=== PATIENT | female | born 1975 | race Caucasian/White ===

== ENCOUNTER 2016-12-09 03:02 | Emergency (ER) | payer BC ==
--- NOTE | 2016-12-09 06:46 | ED ORDER SUMMARY ---
..... Patient: CRISTI DUFFY OrderSheet [facility] VisitID: [id number] [place] [address] 41y, F Registration Date/Time: 12/09/2016 ORDER SHEET Weight: 136.0 kg (stated) Allergies: Sulfa Antibiotics GENERAL ORDERS: CBC w Diff Urgent (03:17 12/09/2016 Kai Carlos) (3:22 JDeElena R.N.) CMP Urgent (03:12/09/2016 Kai Carlos) (3:22 JDeElena R.N.) UA-Culture if indicated Urgent (03:12/09/2016 Kai Carlos) (3:22 JDeElena R.N.) Urine Urgent (03:12/09/2016 Kai Carlos) (3:22 JKadea R.N.) Type & Rh Urgent (03:49 12/09/2016 Kai Carlos) (3:56 HSoule) Serum Quantitative Urgent (03:49 12/09/2016 Kai Carlos) (3:56 HSoule) US OB 1st Trimester w Transvag (?) Urgent (03:49 12/09/2016 Kai Carlos) (Ack 4:00 JDeElena R.N.) (6:02 JDeElena R.N.) GC/Chlamydia (Cervix) (Cervix ) Urgent (04:59 12/09/2016 Cornelio R.NAngelia verbal order read back to Kai Carlos) (5:02 JDeElena R.N.) Wet Prep (Cervix) (Cervix) Urgent (05:00 12/09/2016 Cornelio R.NAngelia verbal order read back to Kai Carlos) (5:02 JDeElena R.N.) MEDICATION ORDERS: IV FLUIDS: IV Saline Lock (03:17 12/09/2016 Kai Carlos) (3:22 JDeElena R.N.) Morphine IV 4 mg (HIGH ALERT MEDICATION, NOW) (06:30 12/09/2016 Kai Carlos) (Ack 6:33 HSoule) (6:40 HSoule) Zofran IV 4 mg (NOW) (06:30 12/09/2016 Kai Carlos) (Ack 6:33 HSoule) (6:40 HSoule) ORDER SHEET NOTES: [Electronically signed by He Payne Dr. (06:51 12/09/2016)] [Electronically signed by Viviana Brower R.N. (07:55 12/11/2016)] [Electronically locked/signed by Viviana Brower R.N. (07:55 12/11/2016)]
--- NOTE | 2016-12-09 06:46 | ED NURSING NOTES ---
Clinical Report - Nurses [place] [address] 12/09/2016 3:04 Patient: CRISTI DUFFY TRIAGE Triage time 03:16. Acuity: LEVEL 3. Chief Complaint: ABDOMINAL PAIN and CRAMPS and VAGINAL BLEEDING. 03:20 12/09/16. Alert. SEPSIS SCREEN: Sepsis Screen: negative. Negative (no infection suspected/documented). --03:20 Bart Barnes R.N. 03:16 12/09/16. BP: 146/84 (regular adult cuff) taken on the right arm, via an automated monitor, while lying. HR: 106 (tachycardic). RR: 18 (regular, unlabored and normal). O2 saturation: 99% on room air. Temp: 97.8 F (oral). Pain level now: 810. --03:20 Bart Barnes R.N. Chief Complaint: (Currently being treated for UTI.). --03:21 Bart Barnes R.N. Weight: 136 kg stated. Height/Length: 65 inches Per Patient. BMI: 50. --03:17 Bart Barnes R.N. Medications Vitamins Oral. --03:17 Bart Barnes R.N. Cephalexin Oral. --03:18 Bart Barnes R.N. Medication/allergy information source: the patient. --03:20 Bart Barnes R.N. Allergies Sulfa Antibiotics. --03:18 Bart Barnes R.N. History Arrived by private vehicle. Historian: patient. Accompanied by spouse. Primary physician (Dr. Momin ([facility] This started just prior to arrival. She has had a subjective fever and severe, cramping abdominal pain. The pain is described as located in the suprapubic region and lower abdomen. She has had vaginal bleeding (States she feels like the tissue came out in the toilet.). She has had care. She is . No chills, sweating episodes, nausea, vomiting or difficulty with urination. Denies muscle aches. Treatment MASTER BARBER: None. PAST MEDICAL HX: Confirmed . In 1st trimester. Has had care by feed research technician. She has had care by an feed research technician. OB history: G 1; P 0; Ab 0. SOCIAL HX: Never smoker. No alcohol use or drug use. She has not traveled outside the [place] The patient was not exposed to MRSA. No infectious disease exposure. ABUSE ASSESSMENT: Abuse assessment: The patient was asked "Do you feel safe in your home?" and "Has anyone hurt you or threatened to hurt you?". No report of abuse. SELF HARM ASSESSMENT: A self harm assessment was performed. The patient answered "no" to the question "Do you have thoughts of harming or killing yourself?" and "Have you recently had thoughts about harming or killing others?". FALL RISK ASSESSMENT: Fall risk assessment completed. No fall risk identified. NUTRITIONAL RISK ASSESSMENT: The nutritional risk assessment revealed no deficiencies. FUNCTIONAL ASSESSMENT: Functional assessment: no impairments noted. LEARNING NEEDS ASSESSMENT: The learning needs assessment revealed no barriers. SKIN INTEGRITY ASSESSMENT: Skin integrity risk assessment completed. No skin integrity risk identified. --03:20 Bart Barnes R.N. ADDITIONAL SURGERIES: Appendectomy. Eye Surgery. Lap Band. Tonsillectomy. --03:18 Bart Barnes R.N. Assessment GENERAL / NEURO / PSYCH: Alert. Oriented X 4. Appears in distress. Brian Coma Scale: 15- eyes open spontaneously (4); best verbal response- oriented x 4 (5); best motor response- obeys commands (6). RESPIRATORY: Respirations not labored. SKIN: Skin is warm and dry. --03:20 Bart Barnes R.N. Interventions ID band on patient. To treatment room. --03:20 Bart Barnes R.N. NURSING PROGRESS NOTES 03:21 12/09/16. The initial plan of care for this patient has been created This plan of care was discussed with the patient. Patient gowned. Warming measures: blanket applied. Reassurance given to the patient. Two patient identifiers checked. Call light placed in reach. Side rails up x 2. Bed placed in lowest position. Brakes of bed on. Patient ready for evaluation- ED physician notified. --03:21 Bart Barnes R.N. 03:22 12/09/2016 Site #1 started via IV in the left hand with an 20g angiocath, with aseptic technique and good blood return; one attempt. Blood drawn: rainbow set. Labeled in the presence of the patient and sent to the lab. Saline lock flushed with 10 mL saline. --03:22 Bart Barnes R.N. 03:52 12/09/16. BP: 121/70. HR: 97. RR: 20. O2 saturation: 99% on room air. Pain level now: 04/19. --03:52 Hailey Jc ( Patient given PO fluids per provider approval). --03:52 Hailey Jc PELVIC EXAM: Pelvic exam performed by ED physician (Dr. Payne). Assisted by one nurse (HOWIE Arriaga). Preparation: pelvic tray and culture medium; patient placed in lithotomy position. Procedure: speculum and bimanual exam. Light amount of bright red vaginal bleeding noted with clots. Specimens collected and sent to lab: GC, chlamydia and wet prep. Status post-procedure: she was stable and no complications were noted. Total time of assist / procedure: 15 minutes. --05:02 Bart Barnes R.N. Lights dimmed. --05:03 Bart Barnes R.N. ( Ultrasound at bedside). --05:26 Hailey Jc 06:38 12/09/16. BP: 117/67. HR: 94. RR: 18. O2 saturation: 96% on room air. Pain level now: 05/19. --06:39 Hailey Jc 06:40 12/09/2016 Morphine IVP 4 mg given over 1 minute(s) via site #1. Allergies verified, confirmed 5 rights and sedative warning given to the patient. IV patency established. IV site checked: no pain, redness, or swelling. IV flushed thoroughly pre- and post-medication administration. IVP given by RN. --06:40 Hailey Jc 06:40 12/09/2016 Zofran (Ondansetron HCl) IVP 4 mg given over 1 minute(s) via site #1. Allergies verified and confirmed 5 rights. IV patency established. IV site checked: no pain, redness, or swelling. IV flushed thoroughly pre- and post-medication administration. IVP given by RN. --06:40 Hailey Jc. DISPOSITION / DISCHARGE 07:08 12/09/16. Departure time: 0700. Condition at departure: improved and stable. No learning barriers present. Discharge instructions provided and reviewed with the patient. Reviewed medication(s) side effects, precautions, dosing and course information. Prescription(s) given to the patient. Patient verbalized understanding. Written instructions provided in Uzbek. The patient was discharged by the physician. She was discharged home and accompanied by spouse. She left the Emergency Department ambulatory and via private vehicle. Spouse driving. --07:09 Linda Chatterjee R.N. 07:07 12/09/16. BP: 117/67. HR: 88. RR: 16. O2 saturation: 99% on room air. Temp: 98 F (oral). Pain level now 0/10. --07:09 Linda Chatterjee R.N. Locked/Released at 12/11/2016 7:55 by Viviana Brower R.N.
--- NOTE | 2016-12-09 06:46 | ED CLINICAL REPORT ---
Clinical Report - Physicians/Mid Levels [facility] [address] [place] [address] 12/09/2016 3:04 [id number] Time Seen: 03:16; initial patient contact. Arrived- By private vehicle. Historian- patient. HISTORY OF PRESENT ILLNESS Chief Complaint: VAGINAL BLEEDING. This started just prior to arrival and still present. The symptoms are described as moderate. Modifying factors. Not worsened by anything. Not relieved by anything. The patient has had pelvic pain and abnormal bleeding. No low back pain, flank pain, vaginal discharge, pain with urination or urinary frequency. No urgency of urination or hematuria. Currently . Similar symptoms previously: None. Recent medical care: The patient was seen recently in a clinic. ( On Keflex for a UTI). REVIEW OF SYSTEMS No nausea, vomiting, fever or chills. All systems otherwise negative, except as recorded above. PAST HISTORY ( Appendectomy. Eye Surgery. Lap Band. Tonsillectomy. -). Medications: Cephalexin Oral. Vitamins Oral. Allergies: Sulfa Antibiotics. SOCIAL HISTORY Never smoker. No alcohol use or drug use. ADDITIONAL NOTES The nursing notes have been reviewed with agreement regarding the chief complaint, PMH and patient medications and allergies. PHYSICAL EXAM Vital Signs: 12/09/2016 03:16 BP: 146/84. HR: 106. RR: 18. O2 saturation: 99%. Temp: 97.8 F. Pain level now: 8/10. Have been reviewed. Hypertensive. Tachycardic. Respiratory rate normal. Temperature normal. Oxygen saturation normal. Appearance: Alert. Oriented X3. No acute distress. HEENT: Normal external inspection. ENT: Pharynx normal. CVS: Heart sounds normal. Rate normal. Rhythm normal. Respiratory: No respiratory distress. Breath sounds normal. Abdomen: Soft. Mild tenderness in the lower abdomen. No guarding or rebound tenderness. Bowel sounds normal. No organomegaly. No mass. Back: Normal external inspection. No CVA tenderness. : Speculum and bimanual exam performed. Slight vaginal bleeding, consisting of dark blood, via the cervical os. Cervical os closed. No cervical dilation. No tissue present. No cervicitis. No tenderness present on bimanual exam. No uterine tenderness. No tenderness with movement of the cervix. No adnexal tenderness. No adnexal mass/fullness. No pelvic mass. (Female RN present for exam). Skin: Skin warm and dry. Normal skin color. No rash. Neuro: Oriented X 3. Mood/affect normal. LABS, X-RAYS, AND EKG Pelvic Sonogram: An intrauterine is present. No cardiac activity visualized. Incomplete Ab. Measuring 6 3/7. The study was interpreted by the radiologist and discussed with the radiologist. Interpretation time: 06:02. Laboratory Tests: UA-Culture if indicated: (DEDE: 12/09/2016 03:15) ( [facility] 12/09/2016 03:36) Final results Test Result Flag Units (Reference) URINE COLOR YELLOW URINE APPEARANCE SLIGHTLY HAZY URINE GLUCOSE NEGATIVE (NEGATIVE) URINE BILIRUBIN NEGATIVE (NEGATIVE) URINE KETONE NEGATIVE (NEGATIVE) URINE SPECIFIC GRAVITY 1.025 (1.010-1.030) URINE PH 6.0 (5.0-8.0) URINE PROTEIN NEGATIVE (NEGATIVE) URINE UROBILINOGEN 0.2 EU/dL (0.2-1.0) URINE NITRITE NEGATIVE (NEGATIVE) URINE BLOOD 3+ (NEGATIVE) URINE LEUK ESTERASE POSITIVE (NEGATIVE) URINE RBC >100 rbc/hpf (0-1) URINE WBC 1-3 wbc/hpf (0-1) URINE EPITHELIAL CELLS 0-1 EPI/hpf (0-5) URINE BACTERIA NONE SEEN (NONE SEEN) URINE COMMENT CULT NOT INDICATED URINE CULTURES ARE SET-UP BASED ON THE FOLLOWING CRITERIA:POSITIVE NITRITEPOSITIVE LEUKOCYTE ESTERASEGREATER THAN 10 WHITE BLOOD CELLSMODERATE (2+) OR GREATER BACTERIA Urine: (DEDE: 12/09/2016 03:15) ( [facility] [place] 12/09/2016 03:28) Final results Test Result Flag Units (Reference) URINE POSITIVE CBC w Diff: (DEDE: 12/09/2016 03:15) ( [facility] 12/09/2016 03:30) Final results Test Result Flag Units (Reference) WHITE BLOOD COUNT 10.9 K/uL (4.5-11.5) RED BLOOD COUNT 4.18 M/uL (4.00-5.20) HEMOGLOBIN 11.6 L gm/dL (12.0-16.0) HEMATOCRIT 34.8 L % (36.0-46.0) MEAN CELL VOLUME 83 fL (80-100) MEAN CORPUSCULAR HGB 28 pg (26-34) MEAN CORPUSCULAR HGB CONC 33 g/dL (31-37) RED CELL DISTRIBUTION WIDTH 15.7 H % (11.6-14.8) PLATELET COUNT 367 K/uL (150-400) NEUTROPHIL % 76.1 H % (50-75) LYMPH % 18.0 L % (25-40) MONO % 3.8 % (3-14) EOSINOPHIL % 2.0 % (0-4) BASOPHIL % 0.1 % (0-2) Serum Quantitative: (DEDE: 12/09/2016 03:15) ( [facility] 12/09/2016 04:44) Final results Test Result Flag Units (Reference) BETA HCG, QUANTITATIVE 2743 mIU/mL REFERENCE RANGE:Adult Males: <2 mIU/mLNon- Females: <6 mIU/mL Females:Approximate Approximate hCGGestational Age Range (mIU/mL) 0-1 week 0-501-2 weeks 40-3002-3 weeks 100-99499-5 weeks 500-54299-2 months 5,000-200,0002-3 months 10,000-100,0002nd trimester 3,000-50,0003rd trimester 1,000-50,000 CMP: (DEDE: 12/09/2016 03:15) ( [facility] 12/09/2016 03:43) Final results Test Result Flag Units (Reference) GLUCOSE 122 H mg/dL (70-110) BUN 10 mg/dL (7-18) CREATININE 0.7 mg/dL (0.6-1.3) Estimated GFR >60 mL/min Estimated GFR- >60 mL/min Note: Persistent reduction over 3 months in eGFR<60 mL/min/1.73 m2 defines CKD. Patients with eGFR values>=60 mL/min/1.73 m2 may also have CKD if evidence ofpersistent proteinuria. Additional information may be foundat www.kidney.org. SODIUM 138 mmol/L (136-145) POTASSIUM 4.1 mmol/L (3.5-5.1) CHLORIDE 103 mmol/L (98-107) CARBON DIOXIDE 26 mmol/L (21-32) CALCIUM 8.6 mg/dL (8.5-10.1) TOTAL PROTEIN 7.4 g/dL (6.4-8.2) ALBUMIN 3.4 g/dL (3.3-5.0) BILIRUBIN, TOTAL 0.3 mg/dL (0.0-1.0) ALKALINE PHOSPHATASE 70 U/L (46-116) AST (SGOT) 26 U/L (15-37) ALT (SGPT) 33 U/L (12-78) Wet Prep: (DEDE: 12/09/2016 04:58) ( [facility] 12/09/2016 05:22) Final results SPECIMEN DESCRIPTION: CERVIX Test Result Flag Units (Reference) WET MOUNT CLUE CELLS:: NONE EPITHELIAL CELLS: FEW -- SOURCE?: CERVIX WHITE BLOOD CELLS: RARE TRICHOMONAS:: NONE -- YEAST:: NONE Type & Rh: (DEDE: 12/09/2016 03:15) ( [facility] 12/09/2016 04:57) Final results Test Result Flag Units (Reference) PATIENT BLOOD TYPE O Positive . PROGRESS AND PROCEDURES Course of Care: 12/09/2016 06:38 BP: 117/67. HR: 94. RR: 18. O2 saturation: 96%. Pain level now: 7/10. Vital Signs: have been reviewed as normal. Disposition: Discharged home in good condition. Condition: good. CLINICAL IMPRESSION Incomplete spontaneous . Positive test in emergency department.No complications. INSTRUCTIONS Prescription Medications: Hydrocodone/APAP 5mg / 325mg: take 1 orally every 6 hours as needed for pain. Dispense fifteen (15). No refill. Zofran (orally disintegrating tablets) 4 mg: take 1 orally every 6 hours as needed for nausea and vomiting. Dispense ten (10). No refill. Substitution is permissible. Follow-up: Follow up with your doctor in about two days. Call for an appointment. (Electronically signed by He Payne Dr. 12/09/2016 6:51)
--- NOTE | 2016-12-09 06:46 | ED ORDER SUMMARY ---
..... Patient: CRISTI DUFFY OrderSheet [facility] VisitID: [id number] [place] [address] 41y, F Registration Date/Time: 12/09/2016 ORDER SHEET Weight: 136.0 kg (stated) Allergies: Sulfa Antibiotics GENERAL ORDERS: CBC w Diff Urgent (03:17 12/09/2016 Kai Carlos) (3:22 JDeElena R.N.) CMP Urgent (03:12/09/2016 Kai Carlos) (3:22 JDeElena R.N.) UA-Culture if indicated Urgent (03:12/09/2016 Kai Carlos) (3:22 JDeElena R.N.) Urine Urgent (03:12/09/2016 Kai Carlos) (3:22 JKadea R.N.) Type & Rh Urgent (03:49 12/09/2016 Kai Carlos) (3:56 HSoule) Serum Quantitative Urgent (03:49 12/09/2016 Kai Carlos) (3:56 HSoule) US OB 1st Trimester w Transvag (?) Urgent (03:49 12/09/2016 Kai Carlos) (Ack 4:00 JDeElena R.N.) (6:02 JDeElena R.N.) GC/Chlamydia (Cervix) (Cervix ) Urgent (04:59 12/09/2016 Cornelio R.NAngelia verbal order read back to Kai Carlos) (5:02 JDeElena R.N.) Wet Prep (Cervix) (Cervix) Urgent (05:00 12/09/2016 Cornelio R.NAngelia verbal order read back to Kai Carlos) (5:02 JDeElena R.N.) MEDICATION ORDERS: IV FLUIDS: IV Saline Lock (03:17 12/09/2016 Kai Carlos) (3:22 JDeElena R.N.) Morphine IV 4 mg (HIGH ALERT MEDICATION, NOW) (06:30 12/09/2016 Kai Carlos) (Ack 6:33 HSoule) (6:40 HSoule) Zofran IV 4 mg (NOW) (06:30 12/09/2016 Kai Carlos) (Ack 6:33 HSoule) (6:40 HSoule) ORDER SHEET NOTES: [Electronically signed by He Payne Dr. (06:51 12/09/2016)] [Electronically signed by Viviana Brower R.N. (07:55 12/11/2016)] [Electronically locked/signed by Viviana Brower R.N. (07:55 12/11/2016)]
--- NOTE | 2016-12-09 06:46 | ED CLINICAL REPORT ---
Clinical Report - Physicians/Mid Levels [facility] [address] [place] [address] 12/09/2016 3:04 [id number] Time Seen: 03:16; initial patient contact. Arrived- By private vehicle. Historian- patient. HISTORY OF PRESENT ILLNESS Chief Complaint: VAGINAL BLEEDING. This started just prior to arrival and still present. The symptoms are described as moderate. Modifying factors. Not worsened by anything. Not relieved by anything. The patient has had pelvic pain and abnormal bleeding. No low back pain, flank pain, vaginal discharge, pain with urination or urinary frequency. No urgency of urination or hematuria. Currently . Similar symptoms previously: None. Recent medical care: The patient was seen recently in a clinic. ( On Keflex for a UTI). REVIEW OF SYSTEMS No nausea, vomiting, fever or chills. All systems otherwise negative, except as recorded above. PAST HISTORY ( Appendectomy. Eye Surgery. Lap Band. Tonsillectomy. -). Medications: Cephalexin Oral. Vitamins Oral. Allergies: Sulfa Antibiotics. SOCIAL HISTORY Never smoker. No alcohol use or drug use. ADDITIONAL NOTES The nursing notes have been reviewed with agreement regarding the chief complaint, PMH and patient medications and allergies. PHYSICAL EXAM Vital Signs: 12/09/2016 03:16 BP: 146/84. HR: 106. RR: 18. O2 saturation: 99%. Temp: 97.8 F. Pain level now: 8/10. Have been reviewed. Hypertensive. Tachycardic. Respiratory rate normal. Temperature normal. Oxygen saturation normal. Appearance: Alert. Oriented X3. No acute distress. HEENT: Normal external inspection. ENT: Pharynx normal. CVS: Heart sounds normal. Rate normal. Rhythm normal. Respiratory: No respiratory distress. Breath sounds normal. Abdomen: Soft. Mild tenderness in the lower abdomen. No guarding or rebound tenderness. Bowel sounds normal. No organomegaly. No mass. Back: Normal external inspection. No CVA tenderness. : Speculum and bimanual exam performed. Slight vaginal bleeding, consisting of dark blood, via the cervical os. Cervical os closed. No cervical dilation. No tissue present. No cervicitis. No tenderness present on bimanual exam. No uterine tenderness. No tenderness with movement of the cervix. No adnexal tenderness. No adnexal mass/fullness. No pelvic mass. (Female RN present for exam). Skin: Skin warm and dry. Normal skin color. No rash. Neuro: Oriented X 3. Mood/affect normal. LABS, X-RAYS, AND EKG Pelvic Sonogram: An intrauterine is present. No cardiac activity visualized. Incomplete Ab. Measuring 6 3/7. The study was interpreted by the radiologist and discussed with the radiologist. Interpretation time: 06:02. Laboratory Tests: UA-Culture if indicated: (DEDE: 12/09/2016 03:15) ( [facility] 12/09/2016 03:36) Final results Test Result Flag Units (Reference) URINE COLOR YELLOW URINE APPEARANCE SLIGHTLY HAZY URINE GLUCOSE NEGATIVE (NEGATIVE) URINE BILIRUBIN NEGATIVE (NEGATIVE) URINE KETONE NEGATIVE (NEGATIVE) URINE SPECIFIC GRAVITY 1.025 (1.010-1.030) URINE PH 6.0 (5.0-8.0) URINE PROTEIN NEGATIVE (NEGATIVE) URINE UROBILINOGEN 0.2 EU/dL (0.2-1.0) URINE NITRITE NEGATIVE (NEGATIVE) URINE BLOOD 3+ (NEGATIVE) URINE LEUK ESTERASE POSITIVE (NEGATIVE) URINE RBC >100 rbc/hpf (0-1) URINE WBC 1-3 wbc/hpf (0-1) URINE EPITHELIAL CELLS 0-1 EPI/hpf (0-5) URINE BACTERIA NONE SEEN (NONE SEEN) URINE COMMENT CULT NOT INDICATED URINE CULTURES ARE SET-UP BASED ON THE FOLLOWING CRITERIA:POSITIVE NITRITEPOSITIVE LEUKOCYTE ESTERASEGREATER THAN 10 WHITE BLOOD CELLSMODERATE (2+) OR GREATER BACTERIA Urine: (DEDE: 12/09/2016 03:15) ( [facility] [place] 12/09/2016 03:28) Final results Test Result Flag Units (Reference) URINE POSITIVE CBC w Diff: (DEDE: 12/09/2016 03:15) ( [facility] [place] [facility] 12/09/2016 03:30) Final results Test Result Flag Units (Reference) WHITE BLOOD COUNT 10.9 K/uL (4.5-11.5) RED BLOOD COUNT 4.18 M/uL (4.00-5.20) HEMOGLOBIN 11.6 L gm/dL (12.0-16.0) HEMATOCRIT 34.8 L % (36.0-46.0) MEAN CELL VOLUME 83 fL (80-100) MEAN CORPUSCULAR HGB 28 pg (26-34) MEAN CORPUSCULAR HGB CONC 33 g/dL (31-37) RED CELL DISTRIBUTION WIDTH 15.7 H % (11.6-14.8) PLATELET COUNT 367 K/uL (150-400) NEUTROPHIL % 76.1 H % (50-75) LYMPH % 18.0 L % (25-40) MONO % 3.8 % (3-14) EOSINOPHIL % 2.0 % (0-4) BASOPHIL % 0.1 % (0-2) Serum Quantitative: (DEDE: 12/09/2016 03:15) ( [facility] 12/09/2016 04:44) Final results Test Result Flag Units (Reference) BETA HCG, QUANTITATIVE 2743 mIU/mL REFERENCE RANGE:Adult Males: <2 mIU/mLNon- Females: <6 mIU/mL Females:Approximate Approximate hCGGestational Age Range (mIU/mL) 0-1 week 0-501-2 weeks 40-3002-3 weeks 100-53296-2 weeks 500-38464-9 months 5,000-200,0002-3 months 10,000-100,0002nd trimester 3,000-50,0003rd trimester 1,000-50,000 CMP: (DEDE: 12/09/2016 03:15) ( [facility] [place] 12/09/2016 03:43) Final results Test Result Flag Units (Reference) GLUCOSE 122 H mg/dL (70-110) BUN 10 mg/dL (7-18) CREATININE 0.7 mg/dL (0.6-1.3) Estimated GFR >60 mL/min Estimated GFR- >60 mL/min Note: Persistent reduction over 3 months in eGFR<60 mL/min/1.73 m2 defines CKD. Patients with eGFR values>=60 mL/min/1.73 m2 may also have CKD if evidence ofpersistent proteinuria. Additional information may be foundat www.kidney.org. SODIUM 138 mmol/L (136-145) POTASSIUM 4.1 mmol/L (3.5-5.1) CHLORIDE 103 mmol/L (98-107) CARBON DIOXIDE 26 mmol/L (21-32) CALCIUM 8.6 mg/dL (8.5-10.1) TOTAL PROTEIN 7.4 g/dL (6.4-8.2) ALBUMIN 3.4 g/dL (3.3-5.0) BILIRUBIN, TOTAL 0.3 mg/dL (0.0-1.0) ALKALINE PHOSPHATASE 70 U/L (46-116) AST (SGOT) 26 U/L (15-37) ALT (SGPT) 33 U/L (12-78) Wet Prep: (DEDE: 12/09/2016 04:58) ( [facility] 12/09/2016 05:22) Final results SPECIMEN DESCRIPTION: CERVIX Test Result Flag Units (Reference) WET MOUNT CLUE CELLS:: NONE EPITHELIAL CELLS: FEW -- SOURCE?: CERVIX WHITE BLOOD CELLS: RARE TRICHOMONAS:: NONE -- YEAST:: NONE Type & Rh: (DEDE: 12/09/2016 03:15) ( [facility] 12/09/2016 04:57) Final results Test Result Flag Units (Reference) PATIENT BLOOD TYPE O Positive . PROGRESS AND PROCEDURES Course of Care: 12/09/2016 06:38 BP: 117/67. HR: 94. RR: 18. O2 saturation: 96%. Pain level now: 7/10. Vital Signs: have been reviewed as normal. Disposition: Discharged home in good condition. Condition: good. CLINICAL IMPRESSION Incomplete spontaneous . Positive test in emergency department.No complications. INSTRUCTIONS Prescription Medications: Hydrocodone/APAP 5mg / 325mg: take 1 orally every 6 hours as needed for pain. Dispense fifteen (15). No refill. Zofran (orally disintegrating tablets) 4 mg: take 1 orally every 6 hours as needed for nausea and vomiting. Dispense ten (10). No refill. Substitution is permissible. Follow-up: Follow up with your doctor in about two days. Call for an appointment. (Electronically signed by He Payne Dr. 12/09/2016 6:51)
--- NOTE | 2016-12-09 06:46 | ED NURSING NOTES ---
Clinical Report - Nurses [facility] [place] [address] 12/09/2016 3:04 Patient: CRISTI DUFFY TRIAGE Triage time 03:16. Acuity: LEVEL 3. Chief Complaint: ABDOMINAL PAIN and CRAMPS and VAGINAL BLEEDING. 03:20 12/09/16. Alert. SEPSIS SCREEN: Sepsis Screen: negative. Negative (no infection suspected/documented). --03:20 Bart Barnes R.N. 03:16 12/09/16. BP: 146/84 (regular adult cuff) taken on the right arm, via an automated monitor, while lying. HR: 106 (tachycardic). RR: 18 (regular, unlabored and normal). O2 saturation: 99% on room air. Temp: 97.8 F (oral). Pain level now: 810. --03:20 Bart Barnes R.N. Chief Complaint: (Currently being treated for UTI.). --03:21 Bart Barnes R.N. Weight: 136 kg stated. Height/Length: 65 inches Per Patient. BMI: 50. --03:17 Bart Barnes R.N. Medications Vitamins Oral. --03:17 Bart Barnes R.N. Cephalexin Oral. --03:18 Bart Barnes R.N. Medication/allergy information source: the patient. --03:20 Bart Barnes R.N. Allergies Sulfa Antibiotics. --03:18 Bart Barnes R.N. History Arrived by private vehicle. Historian: patient. Accompanied by spouse. Primary physician (Dr. Momin ([facility] This started just prior to arrival. She has had a subjective fever and severe, cramping abdominal pain. The pain is described as located in the suprapubic region and lower abdomen. She has had vaginal bleeding (States she feels like the tissue came out in the toilet.). She has had care. She is . No chills, sweating episodes, nausea, vomiting or difficulty with urination. Denies muscle aches. Treatment DIALS INSPECTOR: None. PAST MEDICAL HX: Confirmed . In 1st trimester. Has had care by neck pinner. She has had care by an neck pinner. OB history: G 1; P 0; Ab 0. SOCIAL HX: Never smoker. No alcohol use or drug use. She has not traveled outside the [place] The patient was not exposed to MRSA. No infectious disease exposure. ABUSE ASSESSMENT: Abuse assessment: The patient was asked "Do you feel safe in your home?" and "Has anyone hurt you or threatened to hurt you?". No report of abuse. SELF HARM ASSESSMENT: A self harm assessment was performed. The patient answered "no" to the question "Do you have thoughts of harming or killing yourself?" and "Have you recently had thoughts about harming or killing others?". FALL RISK ASSESSMENT: Fall risk assessment completed. No fall risk identified. NUTRITIONAL RISK ASSESSMENT: The nutritional risk assessment revealed no deficiencies. FUNCTIONAL ASSESSMENT: Functional assessment: no impairments noted. LEARNING NEEDS ASSESSMENT: The learning needs assessment revealed no barriers. SKIN INTEGRITY ASSESSMENT: Skin integrity risk assessment completed. No skin integrity risk identified. --03:20 Bart Barnes R.N. ADDITIONAL SURGERIES: Appendectomy. Eye Surgery. Lap Band. Tonsillectomy. --03:18 Bart Barnes R.N. Assessment GENERAL / NEURO / PSYCH: Alert. Oriented X 4. Appears in distress. Brian Coma Scale: 15- eyes open spontaneously (4); best verbal response- oriented x 4 (5); best motor response- obeys commands (6). RESPIRATORY: Respirations not labored. SKIN: Skin is warm and dry. --03:20 Bart Barnes R.N. Interventions ID band on patient. To treatment room. --03:20 Bart Barnes R.N. NURSING PROGRESS NOTES 03:21 12/09/16. The initial plan of care for this patient has been created This plan of care was discussed with the patient. Patient gowned. Warming measures: blanket applied. Reassurance given to the patient. Two patient identifiers checked. Call light placed in reach. Side rails up x 2. Bed placed in lowest position. Brakes of bed on. Patient ready for evaluation- ED physician notified. --03:21 Bart Barnes R.N. 03:22 12/09/2016 Site #1 started via IV in the left hand with an 20g angiocath, with aseptic technique and good blood return; one attempt. Blood drawn: rainbow set. Labeled in the presence of the patient and sent to the lab. Saline lock flushed with 10 mL saline. --03:22 Bart Barnes R.N. 03:52 12/09/16. BP: 121/70. HR: 97. RR: 20. O2 saturation: 99% on room air. Pain level now: 04/19. --03:52 Hailey Jc ( Patient given PO fluids per provider approval). --03:52 Hailey Jc PELVIC EXAM: Pelvic exam performed by ED physician (Dr. Payne). Assisted by one nurse (HOWIE Arriaga). Preparation: pelvic tray and culture medium; patient placed in lithotomy position. Procedure: speculum and bimanual exam. Light amount of bright red vaginal bleeding noted with clots. Specimens collected and sent to lab: GC, chlamydia and wet prep. Status post-procedure: she was stable and no complications were noted. Total time of assist / procedure: 15 minutes. --05:02 Bart Barnes R.N. Lights dimmed. --05:03 Bart Barnes R.N. ( Ultrasound at bedside). --05:26 Hailey Jc 06:38 12/09/16. BP: 117/67. HR: 94. RR: 18. O2 saturation: 96% on room air. Pain level now: 05/19. --06:39 Hailey Jc 06:40 12/09/2016 Morphine IVP 4 mg given over 1 minute(s) via site #1. Allergies verified, confirmed 5 rights and sedative warning given to the patient. IV patency established. IV site checked: no pain, redness, or swelling. IV flushed thoroughly pre- and post-medication administration. IVP given by RN. --06:40 Hailey Jc 06:40 12/09/2016 Zofran (Ondansetron HCl) IVP 4 mg given over 1 minute(s) via site #1. Allergies verified and confirmed 5 rights. IV patency established. IV site checked: no pain, redness, or swelling. IV flushed thoroughly pre- and post-medication administration. IVP given by RN. --06:40 Hailey Jc. DISPOSITION / DISCHARGE 07:08 12/09/16. Departure time: 0700. Condition at departure: improved and stable. No learning barriers present. Discharge instructions provided and reviewed with the patient. Reviewed medication(s) side effects, precautions, dosing and course information. Prescription(s) given to the patient. Patient verbalized understanding. Written instructions provided in Vietnamese. The patient was discharged by the physician. She was discharged home and accompanied by spouse. She left the Emergency Department ambulatory and via private vehicle. Spouse driving. --07:09 Linda Chatterjee R.N. 07:07 12/09/16. BP: 117/67. HR: 88. RR: 16. O2 saturation: 99% on room air. Temp: 98 F (oral). Pain level now 0/10. --07:09 Linda Chatterjee R.N. Locked/Released at 12/11/2016 7:55 by Viviana Brower R.N.
--- NOTE | 2016-12-09 08:23 | DIAGNOSTIC IMAGING REPORT ---
PROCEDURE: US OB 1ST TRIMESTER W/TRANSVAG INDICATION: ABNORMAL BLEEDING TECHNIQUE: Steinberg scale, color, and spectral Doppler transabdominal and endovaginal sonographic images of the first trimester gravid uterus were obtained. COMPARISON: None. FINDINGS: TRANSABDOMINAL SCANS: Single intrauterine with a pole. Normal maternal kidneys. TRANSVAGINAL SCANS: Yolk sac present. Abnormally shaped pole without any cardiac activity. [place]-rump length 1.4 cm, 7 weeks 5 days. 2.3 cm left ovarian corpus luteum cyst. Right ovary not visualized. IMPRESSION: 1. Findings consistent with demise
--- NOTE | 2016-12-09 08:23 | DIAGNOSTIC IMAGING REPORT ---
PROCEDURE: US OB 1ST TRIMESTER W/TRANSVAG INDICATION: ABNORMAL BLEEDING TECHNIQUE: Steinberg scale, color, and spectral Doppler transabdominal and endovaginal sonographic images of the first trimester gravid uterus were obtained. COMPARISON: None. FINDINGS: TRANSABDOMINAL SCANS: Single intrauterine with a pole. Normal maternal kidneys. TRANSVAGINAL SCANS: Yolk sac present. Abnormally shaped pole without any cardiac activity. [place]-rump length 1.4 cm, 7 weeks 5 days. 2.3 cm left ovarian corpus luteum cyst. Right ovary not visualized. IMPRESSION: 1. Findings consistent with demise
--- NOTE | 2016-12-11 07:55 | ED MED RECONCILIATION SUMMARY ---
Patient: CRISTI DUFFY Medication Reconciliation Report [facility] VisitID: [id number] [address] [place] [address] 41y, F Registration Date/Time: 12/09/2016 Weight: 136.0 kg Height/Length: 65 in. BMI: 50.0 ALLERGIES: Sulfa Antibiotics The patient's Home Medications are listed below: THE FOLLOWING MEDICATIONS NEED TO BE RECONCILED: Cephalexin Oral Vitamins Oral The source(s) of the original Home Medication information: patient The following Medications were given to the patient in the Emergency Department: Morphine [IVP] IVP 4 mg, administered: 12/09/2016 6:40:00 AM Zofran [IVP] IVP 4 mg, administered: 12/09/2016 6:40:00 AM The following Medications were prescribed to the patient: Hydrocodone/APAP 5mg / 325mg: take 1 orally every 6 hours as needed for pain. Dispense fifteen (15). No refill. -- He Payne Dr. [place] (orally disintegrating tablets) 4 mg: take 1 orally every 6 hours as needed for nausea and vomiting. Dispense ten (10). No refill. Substitution is permissible. -- He Payne Dr.
--- NOTE | 2016-12-11 07:55 | ED MED RECONCILIATION SUMMARY ---
Patient: CRISTI DUFFY Medication Reconciliation Report [facility] VisitID: [id number] [address] [place] [address] 41y, F Registration Date/Time: 12/09/2016 Weight: 136.0 kg Height/Length: 65 in. BMI: 50.0 ALLERGIES: Sulfa Antibiotics The patient's Home Medications are listed below: THE FOLLOWING MEDICATIONS NEED TO BE RECONCILED: Cephalexin Oral Vitamins Oral The source(s) of the original Home Medication information: patient The following Medications were given to the patient in the Emergency Department: Morphine [IVP] IVP 4 mg, administered: 12/09/2016 6:40:00 AM Zofran [IVP] IVP 4 mg, administered: 12/09/2016 6:40:00 AM The following Medications were prescribed to the patient: Hydrocodone/APAP 5mg / 325mg: take 1 orally every 6 hours as needed for pain. Dispense fifteen (15). No refill. -- He Payne Dr. [place] (orally disintegrating tablets) 4 mg: take 1 orally every 6 hours as needed for nausea and vomiting. Dispense ten (10). No refill. Substitution is permissible. -- He Payne Dr.
--- NOTE | 2016-12-11 07:55 | ED MAR SUMMARY ---
..... Medication Administration Record [facility] [address] [place] [address] Patient: CRISTI DUFFY Visit ID: [id number] 41y, F Weight: 136.0 kg Height/Length: 65 in BMI: 50 ALLERGIES: Sulfa Antibiotics Given 06:40 12/09/2016 Hailey Jc, Medication Administered: MORPHINE [IVP], Dose: 4 mg IVP over 1 minute(s), Site: #1 left hand. Medication Ordered: Morphine IV 4 mg (HIGH ALERT MEDICATION, NOW). Given 06:40 12/09/2016 Hailey Jc, Medication Administered: ZOFRAN [IVP] (ONDANSETRON HCL), Dose: 4 mg IVP over 1 minute(s), Site: #1 left hand. Medication Ordered: Zofran IV 4 mg (NOW).
--- NOTE | 2016-12-11 07:55 | ED DISCHARGE INSTRUCTIONS ---
Patient: CRISTI DUFFY General Instructions [facility] VisitID: [id number] [place] [address] 41y, F Registration Date/Time: 12/09/2016 Incomplete spontaneous . Positive test in emergency department.No complications. INSTRUCTIONS Prescription Medications: Hydrocodone/APAP 5mg / 325mg: take 1 orally every 6 hours as needed for pain. Dispense fifteen (15). No refill. Zofran (orally disintegrating tablets) 4 mg: take 1 orally every 6 hours as needed for nausea and vomiting. Dispense ten (10). No refill. Substitution is permissible. Follow-up: Follow up with your doctor in about two days. Call for an appointment. ADDITIONAL INFORMATION Miscarriage (Incomplete) Todays exam shows that your has ended suddenly. While this may be an emotionally difficult time for you, know that it is not an uncommon event. A miscarriage can be due to various causes. These include a problem with the babys chromosomes (genes that carry the information needed for life) or with fertilization or implantation that didnt happen correctly. In most cases no cause can be found. Be assured that this miscarriage was not the result of anything that you did wrong, and it will not interfere with your ability to become in the future. It appears that your miscarriage is not yet complete. There is still some tissue from the in the uterus. You will probably have more cramping and bleeding for the next few days as the uterus expels the tissue. In many cases all of the tissue will pass by itself. But sometimes tissue remains and it must be removed to stop bleeding and prevent infection. Home Care: You may resume normal activities if you are not having heavy bleeding or pain. Until the bleeding stops completely and to prevent infection: Do not have sexual intercourse for as long as the healthcare provider tells you. Use sanitary napkins instead of tampons. Do not douche. If you feel sadness or grief, it may help to talk about your feelings with family and friends, or with a counselor. Follow Up: Make an appointment to see your doctor as directed by our staff. tissue will appear as a one-inch or larger piece of cheney or pink flesh. If tissue has not passed from the vagina within the next 5 days, you need to be seen by your doctor for another exam. To prevent infection in the uterus, it may be necessary to remove the tissue through a surgical procedure. Or, you may be prescribed medication to take at home to help your body expel the remaining tissue. Get Prompt Medical Attention if any of the following occur: Heavy bleeding (soaking one new pad an hour over three hours) Foul-smelling vaginal discharge Fever of 100.4F (38C) or higher, or as directed by your healthcare provider Increasing lower abdominal pain Weakness, dizziness, or fainting Hydrocodone Bitartrate, Acetaminophen Oral tablet What is this medicine? ACETAMINOPHEN; HYDROCODONE (a set a MAYANK elda fen; malathi droe KOE done) is a pain reliever. It is used to treat mild to moderate pain. How should I use this medicine? Take this medicine by mouth. Swallow it with a full glass of water. Follow the directions on the prescription label. If the medicine upsets your stomach, take the medicine with food or milk. Do not take more than you are told to take. Talk to your ivory polisher regarding the use of this medicine in children. This medicine is not approved for use in children. What side effects may I notice from receiving this medicine? Side effects that you should report to your doctor or health director long term care as soon as possible: allergic reactions like skin rash, itching or hives, swelling of the face, lips, or tongue breathing problems confusion feeling faint or lightheaded, falls stomach pain yellowing of the eyes or skin Side effects that usually do not require medical attention (report to your doctor or health director long term care if they continue or are bothersome): nausea, vomiting stomach upset What may interact with this medicine? alcohol antihistamines isoniazid medicines for depression, anxiety, or psychotic disturbances medicines for sleep muscle relaxants naltrexone narcotic medicines (opiates) for pain phenobarbital ritonavir tramadol What if I miss a dose? If you miss a dose, take it as soon as you can. If it is almost time for your next dose, take only that dose. Do not take double or extra doses. Where should I keep my medicine? Keep out of the reach of children. This medicine can be abused. Keep your medicine in a safe place to protect it from theft. Do not share this medicine with anyone. Selling or giving away this medicine is dangerous and against the law. Store at room temperature between 15 and 30 degrees C (59 and 86 degrees F). Protect from light. Keep container tightly closed. Throw away any unused medicine after the expiration date. Discard unused medicine and used packaging carefully. Pets and children can be harmed if they find used or lost packages. What should I tell my health care provider before I take this medicine? They need to know if you have any of these conditions: brain tumor Crohn's disease, inflammatory bowel disease, or ulcerative colitis drink more than 3 alcohol-containing drinks per day drug abuse or addiction head injury heart or circulation problems kidney disease or problems going to the bathroom liver disease lung disease, asthma, or breathing problems an unusual or allergic reaction to acetaminophen, hydrocodone, other opioid analgesics, other medicines, foods, dyes, or preservatives or trying to get breast-feeding What should I watch for while using this medicine? Tell your doctor or health director long term care if your pain does not go away, if it gets worse, or if you have new or a different type of pain. You may develop tolerance to the medicine. Tolerance means that you will need a higher dose of the medicine for pain relief. Tolerance is normal and is expected if you take the medicine for a long time. Do not suddenly stop taking your medicine because you may develop a severe reaction. Your body becomes used to the medicine. This does NOT mean you are addicted. Addiction is a behavior related to getting and using a drug for a non-medical reason. If you have pain, you have a medical reason to take pain medicine. Your doctor will tell you how much medicine to take. If your doctor wants you to stop the medicine, the dose will be slowly lowered over time to avoid any side effects. You may get drowsy or dizzy when you first start taking the medicine or change doses. Do not drive, use machinery, or do anything that may be dangerous until you know how the medicine affects you. Stand or sit up slowly. There are different types of narcotic medicines (opiates) for pain. If you take more than one type at the same time, you may have more side effects. Give your health care provider a list of all medicines you use. Your doctor will tell you how much medicine to take. Do not take more medicine than directed. Call emergency for help if you have problems breathing. The medicine will cause constipation. Try to have a bowel movement at least every 2 to 3 days. If you do not have a bowel movement for 3 days, call your doctor or health director long term care. Too much acetaminophen can be very dangerous. Do not take Tylenol (acetaminophen) or medicines that contain acetaminophen with this medicine. Many non-prescription medicines contain acetaminophen. Always read the labels carefully. Ondansetron Oral disintegrating tablet What is this medicine? ONDANSETRON (on RAFIA se colleen) is used to treat nausea and vomiting caused by chemotherapy. It is also used to prevent or treat nausea and vomiting after surgery. How should I use this medicine? These tablets are made to dissolve in the mouth. Do not try to push the tablet through the foil backing. With dry hands, peel away the foil backing and gently remove the tablet. Place the tablet in the mouth and allow it to dissolve, then swallow. While you may take these tablets with water, it is not necessary to do so. Talk to your ivory polisher regarding the use of this medicine in children. Special care may be needed. What side effects may I notice from receiving this medicine? Side effects that you should report to your doctor or health director long term care as soon as possible: allergic reactions like skin rash, itching or hives, swelling of the face, lips, or tongue breathing problems dizziness fast or irregular heartbeat feeling faint or lightheaded, falls fever and chills swelling of the hands and feet tightness in the chest Side effects that usually do not require medical attention (report to your doctor or health director long term care if they continue or are bothersome): constipation or diarrhea headache What may interact with this medicine? Do not take this medicine with any of the following medications: -apomorphine -cisapride -dofetilide -dronedarone -pimozide -thioridazine -ziprasidone This medicine may also interact with the following medications: -carbamazepine -phenytoin -rifampicin -tramadol -other medicines that prolong the QT interval (cause an abnormal heart rhythm) What if I miss a dose? If you miss a dose, take it as soon as you can. If it is almost time for your next dose, take only that dose. Do not take double or extra doses. Where should I keep my medicine? Keep out of the reach of children. Store between 2 and 30 degrees C (36 and 86 degrees F). Throw away any unused medicine after the expiration date. What should I tell my health care provider before I take this medicine? They need to know if you have any of these conditions: heart disease history of irregular heartbeat liver disease low levels of magnesium or potassium in the blood an unusual or allergic reaction to ondansetron, granisetron, other medicines, foods, dyes, or preservatives or trying to get breast-feeding What should I watch for while using this medicine? Check with your doctor or health director long term care as soon as you can if you have any sign of an allergic reaction. You have been given the following additional information: Miscarriage (Incomplete) Hydrocodone Bitartrate, Acetaminophen Oral tablet Ondansetron Oral disintegrating tablet (Electronically signed by He Payne Dr. 12/09/2016 6:51)
--- NOTE | 2016-12-11 07:55 | ED MAR SUMMARY ---
..... Medication Administration Record [facility] [address] [address] Patient: CRISTI DUFFY Visit ID: [id number] 41y, F Weight: 136.0 kg Height/Length: 65 in BMI: 50 ALLERGIES: Sulfa Antibiotics Given 06:40 12/09/2016 Hailey Jc, Medication Administered: MORPHINE [IVP], Dose: 4 mg IVP over 1 minute(s), Site: #1 left hand. Medication Ordered: Morphine IV 4 mg (HIGH ALERT MEDICATION, NOW). Given 06:40 12/09/2016 Hailey Jc, Medication Administered: ZOFRAN [IVP] (ONDANSETRON HCL), Dose: 4 mg IVP over 1 minute(s), Site: #1 left hand. Medication Ordered: Zofran IV 4 mg (NOW).
--- NOTE | 2016-12-11 07:55 | ED DISCHARGE INSTRUCTIONS ---
Patient: CRISTI DUFFY General Instructions [facility] VisitID: [id number] [place] [address] 41y, F Registration Date/Time: 12/09/2016 Incomplete spontaneous . Positive test in emergency department.No complications. INSTRUCTIONS Prescription Medications: Hydrocodone/APAP 5mg / 325mg: take 1 orally every 6 hours as needed for pain. Dispense fifteen (15). No refill. Zofran (orally disintegrating tablets) 4 mg: take 1 orally every 6 hours as needed for nausea and vomiting. Dispense ten (10). No refill. Substitution is permissible. Follow-up: Follow up with your doctor in about two days. Call for an appointment. ADDITIONAL INFORMATION Miscarriage (Incomplete) Todays exam shows that your has ended suddenly. While this may be an emotionally difficult time for you, know that it is not an uncommon event. A miscarriage can be due to various causes. These include a problem with the babys chromosomes (genes that carry the information needed for life) or with fertilization or implantation that didnt happen correctly. In most cases no cause can be found. Be assured that this miscarriage was not the result of anything that you did wrong, and it will not interfere with your ability to become in the future. It appears that your miscarriage is not yet complete. There is still some tissue from the in the uterus. You will probably have more cramping and bleeding for the next few days as the uterus expels the tissue. In many cases all of the tissue will pass by itself. But sometimes tissue remains and it must be removed to stop bleeding and prevent infection. Home Care: You may resume normal activities if you are not having heavy bleeding or pain. Until the bleeding stops completely and to prevent infection: Do not have sexual intercourse for as long as the healthcare provider tells you. Use sanitary napkins instead of tampons. Do not douche. If you feel sadness or grief, it may help to talk about your feelings with family and friends, or with a counselor. Follow Up: Make an appointment to see your doctor as directed by our staff. tissue will appear as a one-inch or larger piece of cheney or pink flesh. If tissue has not passed from the vagina within the next 5 days, you need to be seen by your doctor for another exam. To prevent infection in the uterus, it may be necessary to remove the tissue through a surgical procedure. Or, you may be prescribed medication to take at home to help your body expel the remaining tissue. Get Prompt Medical Attention if any of the following occur: Heavy bleeding (soaking one new pad an hour over three hours) Foul-smelling vaginal discharge Fever of 100.4F (38C) or higher, or as directed by your healthcare provider Increasing lower abdominal pain Weakness, dizziness, or fainting Hydrocodone Bitartrate, Acetaminophen Oral tablet What is this medicine? ACETAMINOPHEN; HYDROCODONE (a set a MAYANK elda fen; malathi droe KOE done) is a pain reliever. It is used to treat mild to moderate pain. How should I use this medicine? Take this medicine by mouth. Swallow it with a full glass of water. Follow the directions on the prescription label. If the medicine upsets your stomach, take the medicine with food or milk. Do not take more than you are told to take. Talk to your digital sales assistant regarding the use of this medicine in children. This medicine is not approved for use in children. What side effects may I notice from receiving this medicine? Side effects that you should report to your doctor or health childcare administrator as soon as possible: allergic reactions like skin rash, itching or hives, swelling of the face, lips, or tongue breathing problems confusion feeling faint or lightheaded, falls stomach pain yellowing of the eyes or skin Side effects that usually do not require medical attention (report to your doctor or health childcare administrator if they continue or are bothersome): nausea, vomiting stomach upset What may interact with this medicine? alcohol antihistamines isoniazid medicines for depression, anxiety, or psychotic disturbances medicines for sleep muscle relaxants naltrexone narcotic medicines (opiates) for pain phenobarbital ritonavir tramadol What if I miss a dose? If you miss a dose, take it as soon as you can. If it is almost time for your next dose, take only that dose. Do not take double or extra doses. Where should I keep my medicine? Keep out of the reach of children. This medicine can be abused. Keep your medicine in a safe place to protect it from theft. Do not share this medicine with anyone. Selling or giving away this medicine is dangerous and against the law. Store at room temperature between 15 and 30 degrees C (59 and 86 degrees F). Protect from light. Keep container tightly closed. Throw away any unused medicine after the expiration date. Discard unused medicine and used packaging carefully. Pets and children can be harmed if they find used or lost packages. What should I tell my health care provider before I take this medicine? They need to know if you have any of these conditions: brain tumor Crohn's disease, inflammatory bowel disease, or ulcerative colitis drink more than 3 alcohol-containing drinks per day drug abuse or addiction head injury heart or circulation problems kidney disease or problems going to the bathroom liver disease lung disease, asthma, or breathing problems an unusual or allergic reaction to acetaminophen, hydrocodone, other opioid analgesics, other medicines, foods, dyes, or preservatives or trying to get breast-feeding What should I watch for while using this medicine? Tell your doctor or health childcare administrator if your pain does not go away, if it gets worse, or if you have new or a different type of pain. You may develop tolerance to the medicine. Tolerance means that you will need a higher dose of the medicine for pain relief. Tolerance is normal and is expected if you take the medicine for a long time. Do not suddenly stop taking your medicine because you may develop a severe reaction. Your body becomes used to the medicine. This does NOT mean you are addicted. Addiction is a behavior related to getting and using a drug for a non-medical reason. If you have pain, you have a medical reason to take pain medicine. Your doctor will tell you how much medicine to take. If your doctor wants you to stop the medicine, the dose will be slowly lowered over time to avoid any side effects. You may get drowsy or dizzy when you first start taking the medicine or change doses. Do not drive, use machinery, or do anything that may be dangerous until you know how the medicine affects you. Stand or sit up slowly. There are different types of narcotic medicines (opiates) for pain. If you take more than one type at the same time, you may have more side effects. Give your health care provider a list of all medicines you use. Your doctor will tell you how much medicine to take. Do not take more medicine than directed. Call emergency for help if you have problems breathing. The medicine will cause constipation. Try to have a bowel movement at least every 2 to 3 days. If you do not have a bowel movement for 3 days, call your doctor or health childcare administrator. Too much acetaminophen can be very dangerous. Do not take Tylenol (acetaminophen) or medicines that contain acetaminophen with this medicine. Many non-prescription medicines contain acetaminophen. Always read the labels carefully. Ondansetron Oral disintegrating tablet What is this medicine? ONDANSETRON (on RAFIA se colleen) is used to treat nausea and vomiting caused by chemotherapy. It is also used to prevent or treat nausea and vomiting after surgery. How should I use this medicine? These tablets are made to dissolve in the mouth. Do not try to push the tablet through the foil backing. With dry hands, peel away the foil backing and gently remove the tablet. Place the tablet in the mouth and allow it to dissolve, then swallow. While you may take these tablets with water, it is not necessary to do so. Talk to your digital sales assistant regarding the use of this medicine in children. Special care may be needed. What side effects may I notice from receiving this medicine? Side effects that you should report to your doctor or health childcare administrator as soon as possible: allergic reactions like skin rash, itching or hives, swelling of the face, lips, or tongue breathing problems dizziness fast or irregular heartbeat feeling faint or lightheaded, falls fever and chills swelling of the hands and feet tightness in the chest Side effects that usually do not require medical attention (report to your doctor or health childcare administrator if they continue or are bothersome): constipation or diarrhea headache What may interact with this medicine? Do not take this medicine with any of the following medications: -apomorphine -cisapride -dofetilide -dronedarone -pimozide -thioridazine -ziprasidone This medicine may also interact with the following medications: -carbamazepine -phenytoin -rifampicin -tramadol -other medicines that prolong the QT interval (cause an abnormal heart rhythm) What if I miss a dose? If you miss a dose, take it as soon as you can. If it is almost time for your next dose, take only that dose. Do not take double or extra doses. Where should I keep my medicine? Keep out of the reach of children. Store between 2 and 30 degrees C (36 and 86 degrees F). Throw away any unused medicine after the expiration date. What should I tell my health care provider before I take this medicine? They need to know if you have any of these conditions: heart disease history of irregular heartbeat liver disease low levels of magnesium or potassium in the blood an unusual or allergic reaction to ondansetron, granisetron, other medicines, foods, dyes, or preservatives or trying to get breast-feeding What should I watch for while using this medicine? Check with your doctor or health childcare administrator as soon as you can if you have any sign of an allergic reaction. You have been given the following additional information: Miscarriage (Incomplete) Hydrocodone Bitartrate, Acetaminophen Oral tablet Ondansetron Oral disintegrating tablet (Electronically signed by He Payne Dr. 12/09/2016 6:51)
== END 2016-12-09 07:00 | disposition home or self-care (01) ==
LOC: ED SRH 03:02
DX: O03.4 Incomplete spontaneous abortion without complication (principal); Z88.2 Allergy status to sulfonamides; Z88.1 Allergy status to other antibiotic agents
CPT/HCPCS: 90001; 90004; 90100; 90155; 90195; 90197; 90469; 91227; 91228; 93070; 95059